=== PATIENT | female | born 1955 | race Caucasian/White ===

== ENCOUNTER 2017-10-15 09:58 | Day surgery (SDC) | payer BC ==
[2017-10-15] MEDS ORDERED: PROPOFOL 20 ML (11:40)
[2017-10-15] MEDS ORDERED: FENTAnyl 50 MCG/ML VIAL (11:40)
[2017-10-15] MEDS ORDERED: MIDAZOLAM 1 MG/ML 2 ML INJ (11:40)
[2017-10-15] MEDS ORDERED: LIDOCAINE 2% (SDV) 5 ML INJ (11:40)
== END 2017-10-15 12:20 | disposition home or self-care (01) ==
LOC: GIL 09:58
DX: Z12.11 Encounter for screening for malignant neoplasm of colon (principal); K64.8 Other hemorrhoids
CPT/HCPCS: 45378